=== PATIENT | male | born 1980 | race Caucasian/White ===

== ENCOUNTER 2017-12-27 11:38 | Observation (INO) ==
--- NOTE | 2017-12-27 11:57 | Emergency Department Note ---
Disposition Clinical Impression: ACS (acute coronary syndrome) Disposition: Admitted As Inpatient Condition: Fair Referrals: NONE,PCP [Primary Care Provider] - Forms: ED Satisfaction Letter Time of Disposition: 14:04 Chest Pain HPI - General Chief Complaint: ED Chest Pain Stated Complaint: chest pain Time Seen by Provider: 12/27/17 11:42 Source: patient, family, EMS Limitations: no limitations Vital Signs Reviewed: Yes Nursing Notes Reviewed: Yes - History of Present Illness HPI Narrative: Patient presents per EMS and I did see the patient upon arrival and he presents with sharp chest pain which began gradually at home this morning at 9:00 and is constant and is worse with exertion and he does have associated dyspnea but no diaphoresis. . Does radiate to the left arm but not to the back. Did have some improvement with nitroglycerin in route and also did receive aspirin. No pain or swelling of the lower extremities. No respiratory symptoms. Social history: Had smoked in the past but does not currently smoke. No alcohol or drugs. Family history: Negative for heart disease in parents or siblings Severity scale (1-10): 5 - Related Data Home Medications Medication Instructions Recorded Confirmed Lisinopril [Zestril] 20 mg PO DAILY 07/21/15 07/21/15 Previous Rx's Medication Instructions Recorded Hydrocodone/Acetaminophen [[place] 1 tab PO QID PRN #20 tab 07/21/15 5-325 Tablet] OxyCODONE/APAP 5/325 [Percocet 1 each PO Q6HR PRN #4 tablet 08/05/16 5/325] HYDROcodone/Acet 5/325 mg [[place] 1 tab PO Q6H PRN #8 tab 04/22/17 5-325 mg] Allergies Allergy/AdvReac Type Severity Reaction Status Date / Time orange juice Allergy Redness of Verified 07/21/15 11:35 Skin Review of Systems: Constitutional: No fever Vision: No blurred vision ENT: No rhinorrhea Respiratory: No cough Allergic: No allergies : No blood in urine GI: No blood in stool Hematologic: No bruising Dermatologic: No skin rash Musculoskeletal: No pain in the extremities Neuro: No numbness of the extremities Chest Pain PMH - Past Medical History Medical history: Reports: no medical history Surgical history: Reports: non-contributory Psychiatric history: Reports: no psych history - Social History Smoking Status: Never smoker Alcohol use: Reports: occasionally Drug use: Reports: none Physical Exam CONSTITUTIONAL: Well-appearing; well-nourished; A&O X 3, in no apparent distress HEAD: Normocephalic; atraumatic EYES: PERRL, no scleral icterus NOSE: The nose is normal in appearance without rhinorrhea NECK: No JVD or distended neck veins RESP: Normal chest excursion with respiration; breath sounds clear and equal bilaterally; no wheezes, rhonchi, or rales CARD: Regular rhythm, without murmurs, rub or gallop ABD: Non-distended; non-tender, soft, without rigidity, rebound or guarding,no pulsatile mass CHEST: No pain with palpation SKIN: Normal for age and race; warm and dry without diaphoresis ; no apparent lesions EXTREMITIES: Pulses are 2 plus and equal times 4 extremities, no peripheral edema or calf muscle pain - General Limitations: no limitations General appearance: alert, in no apparent distress Course Vital Signs Temperature 98.8 F 12/27/17 11:43 Pulse Rate 78 12/27/17 11:43 Respiratory Rate 14 12/27/17 11:43 Blood Pressure 140/87 12/27/17 11:43 O2 Sat by Pulse Oximetry 99 12/27/17 11:43 Temperature 98.8 F 12/27/17 11:43 Pulse Rate 78 12/27/17 11:43 Respiratory Rate 14 12/27/17 11:43 Blood Pressure 140/87 12/27/17 11:43 O2 Sat by Pulse Oximetry 99 12/27/17 11:43 Oxygen Delivery Oxygen Delivery Nasal Cannula Chest Pain - MDM Narrative Medical decision making narrative: I did review the patient's EKG and compared to previous EKG and the current EKG shows normal sinus rhythm with a rate of 81 without acute ischemic change and the patient does have labs ordered including troponin, chest x-ray. Already did receive aspirin. Results pending. Otherwise normal in appearance. Is here with his . 1157 Did review the patient's test results. The patient does have multiple concerning factors, was a smoker and stopped 12 years ago, will be admitted. I did speak with the hospitalist who accepted the patient for admission. 1404 I did review the patient's second EKG showing normal sinus rhythm with a rate of 76 without acute ischemic change 1408 - Medical Records Medical records reviewed: Yes I reviewed the patient's medical records. - Lab Data Lab results reviewed: Yes I reviewed the patient's lab results. Result diagrams: 12/27/17 12:12 12/27/17 12:12 Lab Results 12/27/17 12/27/17 12/27/17 Range/Units 12:12 12:12 12:12 WBC 9.2 (4.3-11.1) K/mcL RBC 4.73 (4.19-5.50) M/mcL Hgb 15.0 (12.9-16.9) g/dL Hct 42.0 (37.5-50.1) % MCV 88.8 (83.0-100.0) fL MCH 31.7 (28.0-33.3) pg MCHC 35.7 H (31.6-35.5) g/dL RDW 12.2 (11.5-14.5) % Plt Count 291 (140-400) K/mcL MPV 9.3 L (9.4-12.4) fL Immature Gran % 0.7 (0-4) % Seg Neutrophils % 62.2 % Lymphocytes % 27.7 % Monocytes % 6.9 % Eosinophils % 2.0 % Basophils % 0.5 % Neutrophils # 5.7 (1.6-8.9) K/mcL Lymphocytes # 2.6 (0.6-4.6) K/mcL Monocytes # 0.6 (0.0-1.3) K/mcL Eosinophils # 0.2 (0.0-0.6) K/mcL Basophils # 0.1 (0.0-0.2) K/mcL Immature Plt Fraction 1.5 (1.1-6.1) % Sodium 136 (136-145) mEq/L Potassium 4.1 (3.5-5.1) mEq/L Chloride 109 H (98-107) mEq/L Carbon Dioxide 21 L (23-29) mEq/L BUN 14 (6-20) mg/dL Creatinine 0.87 (0.70-1.30) mg/dL Est GFR ( Amer) > 60 (> 60) Est GFR (Non-Af Amer) > 60 (> 60) BUN/Creatinine Ratio 16 (6-26) Glucose 101 (70-105) mg/dL Calculated Osmolality 283 (280-300) Calcium 8.9 (8.6-10.3) mg/dL Troponin I < 0.03 (< 0.04) ng/mL - Radiology Data Radiology results reviewed: Yes I reviewed the patient's radiology results.
[2017-12-27 12:19] LABS: Basophils # 0.1 K/mcL (0.0-0.2); Basophils % 0.5 %; Eosinophils # 0.2 K/mcL (0.0-0.6); Immature Granulocytes % 0.7 % (0-4); Immature Platelets 1.5 % (1.1-6.1); Lymphocytes # 2.6 K/mcL (0.6-4.6); Lymphocytes % 27.7 %; Mean Corpuscular HGB Conc 35.7 g/dL (31.6-35.5); Mean Corpuscular Hemoglobin 31.7 pg (28.0-33.3); Mean Corpuscular Volume 88.8 fL (83.0-100.0); Mean Platelet Volume 9.3 fL (9.4-12.4); Monocytes # 0.6 K/mcL (0.0-1.3); Monocytes % 6.9 %; Neutrophils # 5.7 K/mcL (1.6-8.9); Platelet Count 291 K/mcL (140-400); Red Blood Count 4.73 M/mcL (4.19-5.50); Red Cell Distribution Width 12.2 % (11.5-14.5); Segmented Neutrophils % 62.2 %
[2017-12-27 12:39] LABS: BUN/Creatinine Ratio 16 (6-26); Blood Urea Nitrogen 14 mg/dL (6-20); Calcium 8.9 mg/dL (8.6-10.3); Carbon Dioxide 21 mEq/L (23-29); Chloride 109 mEq/L (98-107); Glucose 101 mg/dL (70-105); Osmolality,Calculated 283 (280-300); Potassium 4.1 mEq/L (3.5-5.1); Sodium 136 mEq/L (136-145); eGFR For Non-African Americans > 60 (> 60)
[2017-12-27] MEDS ORDERED: Naloxone 0.4 MG/ML INJ IVP PRN (15:08)
--- NOTE | 2017-12-27 15:13 | Internal Med History&Physical ---
<Lizzy Alcantar - Last Filed: 12/27/17 15:10> Date of Encounter: 12/27/17 Time of Encounter: 15:10 Assessment and Plan (1) Chest pain Current visit: Yes Status: Acute Presented with acute onset of sharp chest pain that radiated to her left arm with associated shortness of breath that made him drop to his knees. No known CAD. Risk factors include morbid obesity, hypertension. Initial troponin negative. EKG without acute ST changes. Low suspicion for pulmonary embolism however remains in differential with chest pain, shortness of breath and collapse. Check d-dimer, if elevated will need chest CTA. Continue to cycle troponin. Echo, stress test pending. Start ASA. Lipid panel, Hgb A1c in the am. Consult cardiology if needed. Qualifiers: Chest pain type: precordial pain Qualified Code(s): R07.2 - Precordial pain (2) High blood pressure Current visit: Yes Status: Acute BP mildly elevated with SBP and 140s. Not currently on antihypertensive medication. Possibly secondary to chest pain/stress of hospitalization. Continue to monitor BP. Initiate antihypertensive medication if needed Qualifiers: Hypertension type: essential hypertension Qualified Code(s): I10 - Essential (primary) hypertension (3) DVT prophylaxis Current visit: Yes Status: Acute heparin Internal Medicine - H&P: HPI Chief complaint: chest pain Admitted From: Home Plans for Post Hospital Care: Home History of present illness: Mr. Jha is a 37 year old male with no significant past medical history who presented to [facility] on 12/27/2017 with complaints of chest pain or shortness of breath. He was placed in observation status for ACS rule out. Information obtained from chart review and patient report. Patient says he was in usual state of health this morning when he was getting ready for work. Said he had acute onset of sharp chest pain, localized to the middle chest. Radiated to left arm. Reports left arm numbness. Also reports some shortness of breath. Says chest pain was so bad it dropped him to his knees. No known CAD. Still with some chest discomfort on exam. Not reproducible. Past Med Surg Social Fam HX - Past Medical History Medical history: no medical history Psychiatric history: no psych history - Past Surgical History Surgical History: non-contributory - Social History Smoking Status: Never smoker Smokeless Tobacco Status: No Alcohol use: occasionally Drug use: none - Additional Family History Additional family history: Reviewed and patient reports cardiac disease on both sides of family. Not in immediate family Internal Medicine - H&P: Meds No Known Home Drugs 12/27/17 [History] 3 Allergy/AdvReac Type Severity Reaction Status Date / Time orange juice Allergy Redness of Verified 12/27/17 14:27 Skin All Systems PM: A 10-system review of systems was performed and is negative for pertinent findings except as documented above in the HPI. - Constitutional Constitutional: no chills, no fever(s), no night sweats - EENT Eyes: no change in vision, no discharge, no pain, no photophobia Ears: no ear discharge, no ear pain, no tinnitus Nose, mouth and throat: no dysphagia, no nasal discharge, no neck pain, no sore throat - Cardiovascular Cardiovascular ROS IM: chest pain, no diaphoresis, no dyspnea, no lightheadedness, no palpitations, no syncope - Respiratory Respiratory: dyspnea on exertion, no cough, no dyspnea, no wheezing, no excessive phlegm production - Gastrointestinal Gastrointestinal: no abdominal pain, no diarrhea, no hematemesis, no hematochezia, no melena, no nausea, no vomiting - Musculoskeletal Musculoskeletal ROS IM: no numbness, no tingling - Integumentary Integumentary IM: no rash, no unusual bruising - Neurological Neurological ROS: no confusion, no convulsions, no focal weakness, no numbness, no tingling, no tremor(s) - Hematologic/Lymphatic Hematologic/Lymphatic: no easy bruising - Constitutional Vitals: Temp Pulse Resp BP Pulse Ox 98.0 F 72 16 136/92 99 12/27/17 15:08 12/27/17 15:08 12/27/17 15:08 12/27/17 15:08 12/27/17 15:08 General appearance: Present: mild distress, A&O X 3, morbidly obese - Head Head exam: Present: atraumatic, normocephalic - Eye Eye exam: Present: PERRL, conjuntiva pink, sclera anicteric Pupils: Present: PERRL - Neck Neck exam general surgery: Present: supple, trachea midline. Absent: lymphadenopathy - Respiratory Respiratory exam: Present: CTAB. Absent: accessory muscle use, rales, rhonchi, wheezes - Cardiovascular Cardiovascular exam: Present: RRR, +S1, +S2. Absent: diastolic murmur, gallop, rubs, systolic murmur - GI/Abdominal GI/Abdominal exam: Present: normal bowel sounds, soft, no peritoneal signs. Absent: distended, tenderness - Extremities Exam Extremities exam: Present: warm, radial pulses palpable and symmetrical. Absent : calf tenderness, cyanotic, pedal edema - Neurological Exam Neurological exam: Present: CN II-XII intact, oriented X3, no focal deficits. Absent: pronater drift, facial droop, speech deficit - Skin Skin exam: Present: dry, intact Internal Med - H&P Results - Labs CBC & Chem 7: 12/27/17 12:12 12/27/17 12:12 <Ariana Newman - Last Filed: 12/27/17 17:25> Date of Encounter: 12/27/17 Internal Medicine - H&P: HPI History of present illness: Mr. Jha is a 37 year old male Past Med Surg Social Fam HX - Family History Mother Adopted: [place]: Mariama Alvarez Age: 56 Family Member Ethnicity: Non- Living Status: Still Living Hx Family Cardiac Disorders: Yes ([place]) All Systems PM: A 10-system review of systems was performed and is negative for pertinent findings except as documented above in the HPI. - Constitutional Vitals: Temp Pulse Resp BP Pulse Ox 98.0 F 72 16 136/92 99 12/27/17 15:08 12/27/17 15:08 12/27/17 15:08 12/27/17 15:08 12/27/17 15:08 Internal Med - H&P Results - Labs CBC & Chem 7: 12/27/17 12:12 12/27/17 12:12 - Attending Attestation I have personally performed a face to face evaluation on this patient. I have reviewed and agree with the care plan provided by RICHA Bacon. History and Exam by me shows: Mr. Jha is a 37 year old male with no significant past medical history who presented to [facility] on 12/27/2017 with complaints of chest pain located left chest wall region radiating to his left arm. Gen: A, A, O x 3 Chest: Diminished BS b/l, no crackles Heart: S1S2+ RRR No murmurs a/p 1. Acute CP Need to r/o ACS EKG - normal sinus rhythm with a rate of 81 and no acute ischemic changes so far negative trop trend on trop stress test in AM
[2017-12-27] MEDS ORDERED: Nitroglycerin 0.4 MG TAB.SUBL SL PRN (15:37)
[2017-12-27] MEDS ORDERED: Ketorolac 30 MG/ML VIAL IVP ONE (15:37)
[2017-12-27] MEDS: Aspirin Enteric Coated 81 MG Tablet PO SCH (15:53)
[2017-12-27] MEDS: *HR* Heparin 5,000 UNIT/ML VIAL SQ SCH (21:11)
[2017-12-27] MEDS: *HR* Morphine 2 MG/ML SYRINGE IVP PRN (22:03)
[2017-12-28 00:19] LABS: Hematocrit 40.7 % (37.5-50.1); Hemoglobin 14.4 g/dL (12.9-16.9); Mean Corpuscular HGB Conc 35.4 g/dL (31.6-35.5); Mean Corpuscular Volume 90.4 fL (83.0-100.0); Mean Platelet Volume 9.4 fL (9.4-12.4); Platelet Count 265 K/mcL (140-400); Red Cell Distribution Width 12.3 % (11.5-14.5)
[2017-12-28 00:24] LABS: Hemoglobin A1C 4.7 %
[2017-12-28 00:51] LABS: BUN/Creatinine Ratio 18 (6-26); Blood Urea Nitrogen 20 mg/dL (6-20); Calcium 8.7 mg/dL (8.6-10.3); Carbon Dioxide 23 mEq/L (23-29); Chloride 108 mEq/L (98-107); Chol/HDL Ratio 4.1 (0-4.9); Glucose 109 mg/dL (70-105); Osmolality,Calculated 287 (280-300); Sodium 137 mEq/L (136-145); eGFR For Non-African Americans > 60 (> 60)
[2017-12-28] MEDS: *HR* Heparin 5,000 UNIT/ML VIAL SQ SCH ×3 (05:38→21:03)
[2017-12-28] MEDS: *HR* Morphine 2 MG/ML SYRINGE IVP PRN ×3 (06:18→19:28)
[2017-12-28] MEDS ORDERED: Regadenoson 0.4 MG/5 ML SYRINGE IVP ONE (06:54)
[2017-12-28] MEDS: Aspirin Enteric Coated 81 MG Tablet PO SCH (10:30)
--- NOTE | 2017-12-28 16:51 | Internal Med Progress Note ---
Date of Encounter: 12/28/17 Time of Encounter: 16:48 - Assessment and plan (1) Chest pain Current Visit: Yes Status: Acute Assessment and plan: presented with acute onset of sharp chest pain that radiated to her left arm with associated shortness of breath that made him drop to his knees. No known CAD. Risk factors include morbid obesity, hypertension. Serial troponin negative. EKG without acute ST changes. TTE with EF 50%, mild diastolic dysfunction. Hgb A1c 4.7%, LDL 101. Continue ASA, start statin. Stress test pending. With persistent CP will check chest CTA. Qualifiers: Chest pain type: precordial pain Qualified Code(s): R07.2 - Precordial pain (2) High blood pressure Current Visit: Yes Status: Acute Assessment and plan: BP mildly elevated with SBP and 140s. Not currently on antihypertensive medication. Possibly secondary to chest pain/stress of hospitalization. Continue to monitor BP. Initiate antihypertensive medication if needed. BP controlled on 12/28/17 review Qualifiers: Hypertension type: essential hypertension Qualified Code(s): I10 - Essential (primary) hypertension (3) DVT prophylaxis Current Visit: Yes Status: Acute Assessment and plan: heparin - Subjective Interval history: Seen and examined at bedside. Says he is still having intermittent chest discomfort that comes and goes. No aggravating or alleviating factors. No shortness of breath. - Constitutional Vitals: Temp Pulse Resp BP Pulse Ox 97.8 F 61 18 119/75 95 12/28/17 15:25 12/28/17 15:25 12/28/17 15:25 12/28/17 15:25 12/28/17 15:25 General appearance: Present: A&O X 3, morbidly obese - Head Head exam: Present: atraumatic, normocephalic - Eye Eye exam: Present: PERRL, conjuntiva pink, sclera anicteric Pupils: Present: PERRL - Neck Neck exam general surgery: Present: supple, trachea midline. Absent: lymphadenopathy - Respiratory Respiratory exam: Present: CTAB. Absent: accessory muscle use, rales, rhonchi, wheezes - Cardiovascular Cardiovascular exam: Present: RRR, +S1, +S2. Absent: diastolic murmur, gallop, rubs, systolic murmur - GI/Abdominal GI/Abdominal exam: Present: normal bowel sounds, soft, no peritoneal signs. Absent: distended, tenderness - Extremities Exam Extremities exam: Present: warm, radial pulses palpable and symmetrical. Absent : calf tenderness, cyanotic, pedal edema - Neurological Exam Neurological exam: Present: CN II-XII intact, oriented X3, no focal deficits. Absent: pronater drift, facial droop, speech deficit - Skin Skin exam: Present: dry, intact Internal Medicine: Result - Labs CBC & Chem 7: 12/28/17 00:09 12/28/17 00:09 Labs: Short CBC 12/28/17 Range/Units 00:09 WBC 12.1 H (4.3-11.1) K/mcL Hgb 14.4 (12.9-16.9) g/dL Hct 40.7 (37.5-50.1) % Plt Count 265 (140-400) K/mcL BMP 12/28/17 00:09 Sodium 137 Potassium 4.0 Chloride 108 H Carbon Dioxide 23 BUN 20 Creatinine 1.13 Glucose 109 H Calcium 8.7 Cardiac Enzymes 12/27/17 12/28/17 Range/Units 17:49 00:09 Troponin I < 0.03 < 0.03 (< 0.04) ng/mL - ABG Interpretation ABG results: PT/INR, D-dimer D-Dimer 225 ng/mLFEU (0-500) 12/27/17 15:44 - Impressions Impressions Echocardiogram 12/28/17 15:11 Impressions: LVEF 50-55%. Mild left ventricular diastolic dysfunction. Normal right ventricular structure and function. No significant valvular dysfunction. No pulmonary hypertension. Left Ventricular Wall Motion: Rest Echo Findings All wall segments showed normal motion. Findings: Study Quality * Technically adequate exam. ECG Findings * Normal sinus rhythm. Left Ventricle * LVEF 50-55%. * Mild left ventricular diastolic dysfunction. * Normal LV chamber size and wall thickness. Right Ventricle * Normal right ventricular structure and function. Left Atrium * Normal left atrial size. Right Atrium * Normal right atrial size. Aortic Valve * No aortic regurgitation. * Aortic valve not well visualized. * No aortic stenosis. Mitral Valve * Normal mitral valve structure. * No mitral stenosis. * Trace mitral regurgitation. Tricuspid Valve * Tricuspid valve not well visualized. * Trace tricuspid regurgitation. * Estimated RA pressure is 3 mmHg. * Estimated RVSP is 27 mmHg. * No pulmonary hypertension. Pulmonic Valve * Pulmonic valve is not well visualized. * No pulmonic stenosis. * No pulmonic regurgitation. Pulmonary Artery * Pulmonary artery not well visualized. Aorta * Normally sized aortic root. Pericardium * There is no pericardial effusion present. Interatrial Septum * No evidence of PFO by color Doppler. IVC * Normal IVC dimensions and inspiratory collapse. Consult Discharge Plan - Plan Referrals: NONE,PCP [Primary Care Provider] -
[2017-12-29] MEDS: *HR* Morphine 2 MG/ML SYRINGE IVP PRN ×4 (04:29→22:36)
[2017-12-29 04:48] LABS: Hematocrit 40.7 % (37.5-50.1); Hemoglobin 14.2 g/dL (12.9-16.9); Mean Corpuscular HGB Conc 34.9 g/dL (31.6-35.5); Mean Corpuscular Hemoglobin 31.6 pg (28.0-33.3); Mean Corpuscular Volume 90.4 fL (83.0-100.0); Mean Platelet Volume 9.6 fL (9.4-12.4); Platelet Count 253 K/mcL (140-400); Red Cell Distribution Width 12.3 % (11.5-14.5)
[2017-12-29 05:13] LABS: BUN/Creatinine Ratio 20 (6-26); Blood Urea Nitrogen 19 mg/dL (6-20); Carbon Dioxide 25 mEq/L (23-29); Chloride 107 mEq/L (98-107); Glucose 105 mg/dL (70-105); Osmolality,Calculated 287 (280-300); Sodium 137 mEq/L (136-145); eGFR For Non-African Americans > 60 (> 60)
[2017-12-29] MEDS: *HR* Heparin 5,000 UNIT/ML VIAL SQ SCH ×3 (06:21→20:09)
[2017-12-29] MEDS: Aspirin Enteric Coated 81 MG Tablet PO SCH (08:16)
--- NOTE | 2017-12-29 16:56 | Internal Med Progress Note ---
Date of Encounter: 12/29/17 Time of Encounter: 16:54 - Assessment and plan (1) Chest pain Current Visit: Yes Status: Acute Assessment and plan: presented with acute onset of sharp chest pain that radiated to her left arm with associated shortness of breath that made him drop to his knees. No known CAD. Risk factors include morbid obesity, hypertension. Serial troponin negative. EKG without acute ST changes. TTE with EF 50%, mild diastolic dysfunction. Chest CTA negative for pulmonary embolism. Hgb A1c 4.7%, LDL 101. Continue ASA, start statin. Stress test pending. Qualifiers: Chest pain type: precordial pain Qualified Code(s): R07.2 - Precordial pain (2) High blood pressure Current Visit: Yes Status: Acute Assessment and plan: BP mildly elevated with SBP and 140s. Not currently on antihypertensive medication. Possibly secondary to chest pain/stress of hospitalization. Continue to monitor BP. Initiate antihypertensive medication if needed. BP controlled on 12/29/17 review Qualifiers: Hypertension type: essential hypertension Qualified Code(s): I10 - Essential (primary) hypertension (3) DVT prophylaxis Current Visit: Yes Status: Acute Assessment and plan: heparin - Subjective Interval history: Seen and examined at bedside. Says he feels much better on today's exam. Still having mild chest pressure but overall improved. He thinks he may have injured left shoulder while moving boxes at work and suspects this could be extremity chest pain. He is aware of need to be nothing by mouth at midnight for second part stress test. He otherwise has no complaints and feels well. - Constitutional Vitals: Temp Pulse Resp BP Pulse Ox 97.7 F 75 16 120/84 97 12/29/17 15:54 12/29/17 15:54 12/29/17 15:54 12/29/17 15:54 12/29/17 15:54 General appearance: Present: A&O X 3, morbidly obese Internal Medicine: Result - Labs CBC & Chem 7: 12/29/17 04:11 12/29/17 04:11 Labs: Short CBC 12/29/17 Range/Units 04:11 WBC 9.5 (4.3-11.1) K/mcL Hgb 14.2 (12.9-16.9) g/dL Hct 40.7 (37.5-50.1) % Plt Count 253 (140-400) K/mcL BMP 12/29/17 04:11 Sodium 137 Potassium 4.0 Chloride 107 Carbon Dioxide 25 BUN 19 Creatinine 0.96 Glucose 105 Calcium 9.0 - ABG Interpretation ABG results: PT/INR, D-dimer D-Dimer 225 ng/mLFEU (0-500) 12/27/17 15:44 - Impressions Impressions Chest CTA 12/28/17 16:46 IMPRESSION: No evidence of pulmonary embolism or acute pulmonary abnormality. D/ / Demetri Romero / Demetri Romero Interpreting Provider: Demetri Romero Consult Discharge Plan - Plan Referrals: NONE,PCP [Primary Care Provider] -
[2017-12-30] MEDS: *HR* Heparin 5,000 UNIT/ML VIAL SQ SCH ×3 (05:41→22:19)
[2017-12-30] MEDS: *HR* Morphine 2 MG/ML SYRINGE IVP PRN ×3 (06:07→18:47)
--- NOTE | 2017-12-30 06:22 | Electrocardiograph Report ---
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
--- NOTE | 2017-12-30 06:24 | Electrocardiograph Report ---
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
[2017-12-30] MEDS: Aspirin Enteric Coated 81 MG Tablet PO SCH (07:50)
--- NOTE | 2017-12-30 11:58 | Cardiology Consult Note ---
<Marcy Underwood - Last Filed: 12/30/17 12:02> Date of Encounter: 12/30/17 Time of Encounter: 11:57 Assessment and Plan (1) Chest pain Current Visit: Yes Status: Acute Per cardiology: -Admitted with chest pain. -Troponins negative x3. -ECG with no acute ischemic changes. -TTE with LVEF 50-55%, no segmental wall motion abnormalities. -Stress test abnormal. -ON asa, has PRN nitro. -Discussed LHC versus medical management with pateint and mother. At this time, patient prefers to proceed with LHC. RIsks versus benefits of LHC explained to pateint and family. Patient states understanding and agreeable to proceed. -Added statin (LDL 101) and beta luci. -Further recommendations pending LHC. Qualifiers: Chest pain type: other chest pain Qualified Code(s): R07.89 - Other chest pain; R07.8 - Other chest pain (2) Abnormal stress test Current Visit: Yes Status: Acute Per cardiology: -Stress with small area of apex ischemia. Suspected to be artifact, however ischemia cannot be ruled out. -PLan for LHC as above. Discussion w patient/family: The assessment and plan as outlined above was discussed with the patient and/or family members who expressed understanding and agreement. All questions were answered. Thank you for involving us in the care of your patient. Please call with any questions. -Discussed and reviewed with and . History of Present Illness Consult date: 12/30/17 Requesting physician: Malou Conn Consult reason: abnormal stress Chief complaint: chest pain History of present illness: Mr. Jha is a 37 year old male with a relevant past medical history of HTN, obesity, previous smoking (smoked 3 ppd for 15 years). Patient presented to [facility] with complaints of midsternal chest pain that radiated to left arm. Pateint states pain started while up walking and on the telephone. Patient states pain was worse with exertion and somewhat lessened with rest. Patient reports pain has waxed and waned since Saturday, but has never been resolved. Patient also admits to increased fatigue and increased shortness of breath. Past Med Surg Social Fam HX - Past Medical History Attestation: Yes The following information was validated with the patient. Source: patient, old records reviewed Medical history: hypertension Psychiatric history: no psych history - Past Surgical History Surgical History: non-contributory - Social History Smoking Status: Never smoker Smokeless Tobacco Status: No Alcohol use: occasionally Drug use: none - Family History Mother Adopted: [place]: Mariama Alvarez Age: 56 Family Member Ethnicity: Non- Living Status: Still Living Hx Family Cardiac Disorders: Yes (MS) Medications and Allergies No Known Home Drugs 12/27/17 [History] 3 Allergy/AdvReac Type Severity Reaction Status Date / Time orange juice Allergy Redness of Verified 12/27/17 14:27 Skin All Systems Review: The remainder of the systems were reviewed and are negative - Constitutional Constitutional: fatigue - Cardiovascular Cardiovascular: as per HPI, chest pain at rest, chest pain with exertion, dyspnea on exertion Physical Examination Vital Signs, Last 4 Hours Temp Pulse Resp BP Pulse Ox 12/30/17 11:42 97.5 F L 71 15 106/74 97 General: Conversant, No Apparent Distress HEENT: Atraumatic, Normocephaly, Mucus Membranes Moist Neck: No JVD, Normal carotid pulses Cardiac: Reg Rate and Rhythm, Normal S1 and S2, No Murmur Lungs: Normal Breath Sounds, No Wheeze, Rales, Rhonchi Neuro: Alert and responsive, No focal deficits noted Abdomen: Soft, Non-Tender Skin: No rashes noted on visualized skin Musculoskeletal: No Chest Wall Tenderness Extremities: No Clubbing, No Cyanosis, No Edema, Normal Pulses Results 12/29/17 04:11 12/29/17 04:11 Impressions Shoulder X-Ray 12/29/17 16:55 IMPRESSION: No acute abnormality. D/ / Kushal Avalos MD / Kushal Avalos MD Interpreting Provider: Kushal Avalos MD Active Medications Aspirin (Aspirin Ec) 81 mg PO DAILY PETE Stop: 06/28/18 15:16 Last Admin: 12/30/17 07:50 Dose: 81 mg Atorvastatin Calcium (Lipitor) 40 mg PO HS PETE Stop: 07/01/18 21:01 Heparin Sodium (Porcine) (Heparin) 5,000 unit SQ Q8HCO PETE Stop: 06/28/18 22:01 Last Admin: 12/30/17 05:41 Dose: 5,000 unit Metoprolol Succinate (Toprol Xl) 25 mg PO DAILY PETE Stop: 07/01/18 12:01 Morphine Sulfate (Morphine Sulfate) 2 mg IVP Q6HR PRN; Protocol PRN Reason: Chest Pain Stop: 06/28/18 21:33 Last Admin: 12/30/17 06:07 Dose: 2 mg Naloxone HCl (Narcan) 0.4 mg IVP Q2MIN PRN PRN Reason: SEE COMMENTS Stop: 06/28/18 15:09 Nitroglycerin (Nitroglycerin) 0.4 mg SL Q5MIN PRN PRN Reason: Chest Pain Stop: 06/28/18 15:38 Last Admin: 12/27/17 15:54 Dose: 0.4 mg Laboratory Tests 12/27/17 12/27/17 12/28/17 12:12 17:49 00:09 Hgb Creatinine Troponin I < 0.03 < 0.03 < 0.03 LDL Cholesterol, Calc 12/28/17 12/29/17 12/29/17 00:09 04:11 04:11 Hgb 14.2 Creatinine 0.96 Troponin I LDL Cholesterol, Calc 101 H - Imaging and Cardiology Chest Xray: report reviewed Stress Test: report reviewed Echo: report reviewed Cardiac cath: pending - EKG Interpretation EKG results cardiology: personally reviewed (ECG with SR.), other (Telemetry reviewed with average HR previous 12 hours noted to be 75, SR. PACs noted.) Consult Discharge Plan - Plan Referrals: NONE,PCP [Primary Care Provider] - <Evonne Weiner - Last Filed: 12/30/17 12:36> Date of Encounter: 12/30/17 - Attending Attestation 37 YOM with abnormal stress test and preserved EF evaluated for typical angina. Apical reversible ischemia Abnormal stress test Typical angina EKG unremarkable LHC d/w pt including r/b/a and patient agrees to proceed Assessment and Plan Discussion w patient/family: The assessment and plan as outlined above was discussed with the patient and/or family members who expressed understanding and agreement. All questions were answered. Thank you for involving us in the care of your patient. Please call with any questions. History of Present Illness History of present illness: Mr. Jha is a 37 year old male All Systems Review: The remainder of the systems were reviewed and are negative Physical Examination Vital Signs, Last 4 Hours Temp Pulse Resp BP Pulse Ox 12/30/17 11:42 97.5 F L 71 15 106/74 97 Results 12/29/17 04:11 12/29/17 04:11
[2017-12-30] MEDS ORDERED: Metoprolol XL (24 HR) Succ 25 MG TAB.ER.24H PO SCH (12:00)
[2017-12-30] MEDS ORDERED: Nitroglycerin 1,000 MCG/10 ML VIAL IV ONE (13:56)
[2017-12-30] MEDS ORDERED: ISOVUE-370 200 ML INFUS..BTL IV ONE (13:56)
[2017-12-30] MEDS ORDERED: 0.9 % Sodium Chloride 1,000 ML ONE ×2 (13:56→14:39)
[2017-12-30] MEDS ORDERED: Heparin 1,000 UNITS/500 mL 500 ML ONE (13:56)
[2017-12-30] MEDS ORDERED: *HR* Heparin 10,000 UNIT/10 ML VIAL ONE (13:56)
[2017-12-30] MEDS ORDERED: *HR* Midazolam HCl 2 MG/2 ML VIAL ONE ×2 (14:39→14:57)
--- NOTE | 2017-12-30 15:18 | Pre-Sedation Evaluation ---
Pre-sedation evaluation - Pre-sedation checklist Date of procedure: 12/30/17 Procedure: left heart cath Recent Vitals: Last Vital Signs Temp 97.5 F L 12/30/17 11:42 Pulse 71 12/30/17 11:42 Resp 15 12/30/17 11:42 BP 106/74 12/30/17 11:42 Pulse Ox 97 12/30/17 11:42 H&P (including ROS) documented in medical record: Yes Previous reaction to sedatives/anesthetics: No Dietary Status: No solid food in preceding 4 hrs and no liquid in preceding 2 hrs Airway Assessment: Patient can open mouth completely, TMJ function normal Dentition: No loose teeth or bridges Possible difficult airway: No ASA Classification *see protocol: CLASS III-Severe systemic disease Plan of Care: Pt appropriate candidate for procedure/moderate/conscious sedation , Risks/benefits of procedure/sedation discussed w/ patient/family, If not NPO; Risk of intake outweiged by necessity to perform procedure
--- NOTE | 2017-12-30 15:25 | Event Note ---
Date of Encounter: 12/30/17 Time of Encounter: 15:20 - Cardiology Event Note Reviewed C findings with Dr. Iraheta. LHC: non-obstructive CAD. Risk factor modification recommended. Discussed with Dr. Weiner, Cardiology will sign-off. Recommend follow-up with PCP in the outpatient setting.
--- NOTE | 2017-12-30 15:44 | Invasive Diagnostic Lab Proc ---
Name: Christ Jha Date of Study: 12/30/2017 Date: 1980 Ht: 74.0in Medical Record#: [id number] Age: 37 Wt: 361.56lb Gender: Male BSA: 2.8 Order #: [id number] BMI: 46.4 Physicians Procedure Physician: Jadon Iraheta DO Referring MD: Referring MD: Staff Name Position Time In Soledad Negrete RT (R) Scrub 02:20 PM Deanna Max RN Cashier Ticket Selling 02:20 PM Clarisse Casiano RN Monitor 02:26 PM Indications Indication Abnormal Test - Stress Procedures Performed Procedure L HRT ARTERY/VENTRICLE ANGIO Pre-Procedure Checklist Informed consent is complete signed and on chart. H&P is on chart. ID band is on and ID verified with patient. Patient NPO for procedure The procedure was described for the patient and questions were answered. Blood Pressure: 106/74 ECG is on chart. Rhythm: NSR Plan of Care Patient will tolerate the procedure without complications. Adequate level of comfort will be maintained. Hemodynamics will remain stable Patient will recover from procedure without complications. Respiratory function will be maintained. Cardiac rhythm will remain stable. Patient temperature will be maintained. Patient and/or family have verbalized understanding of the procedure. Patient Education Chief Complaint/Reason for Test: Cardiac Cath Developmental Category: Adult (18-64 years) Developmentally Appropriate for Age: Yes Learning Barriers: None Education Needs: Procedure Education Method: Verbal Information Taught: Cardiac Cath Educational Evaluation: Able to repeat information Intravenous Access Time IV Size Location DC'd Fluid/Drip Rate Units RN 01:53 PM 18g 1 11/07" Patent On Arrival Lt Antecubital Deanna Max RN Allergies orange juice NO KNOWN ALLERGIES NKA Vital Signs Time BP (mmHg) HR (bpm) O2 Sat. RR (bpm) LOC 01:54 PM 106 / 74 71 97 % 15 5 = Fully awake and oriented or at pre-proc level 02:28 PM / % 4 = Oriented but drowsy 02:28 PM / % 5 = Fully awake and oriented or at pre-proc level 02:45 PM / % 4 = Oriented but drowsy 03:01 PM / % 4 = Oriented but drowsy 03:16 PM / % 4 = Oriented but drowsy 02:39 PM 148 / 65 91 100 % 25 03:21 PM 156 / 103 85 97 % 10 Procedural Medications Time Medication Dose Units Method Given By 02:45 PM Oxygen 2 L/min nasal cannula Deanna Max RN 02:45 PM Versed 2 mg Intravenous Deanna Max RN 02:58 PM Versed 1 mg Intravenous Deanna Max RN 02:59 PM Lidocaine 2% 10 ml Subcutaneous Jadon Iraheta, DO 03:10 PM Versed 1 mg Intravenous Deanna Max RN ASA Classification: CLASS III- Severe systemic disease (i.e. prior AMI, diabetes with vascular complications, morbid obesity) Garland Score Preprocedure Postprocedure Activity 2- Moves 4 extremities sustained head lift Activity 2- Moves 4 extremities sustained head lift Circulation 2- SBP +/= 20 points of pre-anesthetic level Circulation 2- SBP +/= 20 points of pre-anesthetic level Consciousness 2- Awake and alert oriented x 3 Consciousness 2- Awake and alert oriented x 3 O2 Saturation 2- Able to maintain O2 satruation of 92% on room air O2 Saturation 2- Able to maintain O2 satruation of 92% on room air Respiratory 2- Able to deep breathe and cough well Respiratory 2- Able to deep breathe and cough well Total Score 10 Total Score 10 Contrast Agent: Isovue Diagnostic Contrast: 45 ml Total Contrast: 45 ml Fluoro Dose: 297 mGy Procedure Log Time Note Enter By 02:15 PM Physican paged/called 14:15. scoates 02:15 PM Pt arrived to laborer concrete paving 2 at 14:15 scoates 02:20 PM Soledad Negrete RT (R) Position: Scrub Time in: 14:20 scoates 02:26 PM Deanna Max RN Position: Cashier Ticket Selling Time in: 14:20 scoates 02:26 PM Clarisse Casiano RN Position: Monitor Time in: 14:26 scoates 02:26 PM Patient charges- Angio tray pack, Navilyst 3mm J, Pulse Oximetry and ACIST tubing and transducer scoates 02:28 PM Time: 14:27 Patient comfortable and pain free: Yes scoates 02:28 PM Time: 14:28LOC: 4 = Oriented but drowsy scoates 02:39 PM NIBP STAT measurement started. 02:39 PM HR=91 bpm, DESK=701/65 mmhg, TuL2=070.0 %, Resp=25 B/min 02:40 PM Physician arrived 14:40 scoates 02:40 PM Meet and greet completed scoates 02:40 PM Sign in performed according to hospital policy. scoates 02:41 PM Procedure start 14:41 scoates 02:45 PM Time: 14:28LOC: 5 = Fully awake and oriented or at pre-proc level scoates 02:45 PM Time: 14:28 Patient comfortable and pain free: Yes scoates 02:45 PM Time: 14:45 Oxygen on at 2 L/min per nasal cannula by Deanna Max RN scoates 02:45 PM Time: 14:45 Versed 2 mg Intravenous Given by Deanna Max RN scoates 02:46 PM Recorded ECG: HR=83 Condition=Condition 1 02:49 PM Pressure channel 2 zeroed. 02:52 PM Case Delayed no, inpatient scoates 02:52 PM Hair removed from procedure site in procedure lab using clippers. Bilateral groin prepped with Chloraprep by Clarisse Casiano RN, then patient was draped. Skin intact. scoates 02:56 PM Pressure channel 2 zeroed. 02:58 PM Time: 14:58 Versed 1 mg Intravenous Given by Deanna Max RN scoates 02:58 PM ASA Class CLASS III- Severe systemic disease (i.e. prior AMI, diabetes with vascular complications, morbid obesity) scoates 02:59 PM Clinical Presentation: Unstable angina scoates 02:59 PM Time out performed according to hospital policy scoates 02:59 PM Time: 14:59 10 ml Lidocaine 2% to right groin Subcutaneous Given by Jadon Iraheta DO scoates 03:01 PM Time: 14:45 Patient comfortable and pain free: Yes scoates 03:01 PM Time: 14:45LOC: 4 = Oriented but drowsy scoates 03:02 PM Micro-Introducer Kit utilized for sheath placement scoates 03:03 PM Unsuccessful access attempt # 1 into the right Femoral artery. Manual pressure applied to achieve hemostasis.. scoates 03:05 PM Unsuccessful access attempt # 2 into the right Femoral artery. Manual pressure applied to achieve hemostasis.. scoates 03:07 PM Access obtained by percutaneous puncture. 4Fr 10cm Terumo Horner sheath placed in right Femoral vein. [id number] scoates 03:09 PM Access obtained by percutaneous puncture. 6Fr 11cm Terumo Horner sheath placed in right Femoral artery. [id number] scoates 03:09 PM 6Fr FR 4 catheter inserted over the wire DNC scoates 03:09 PM Catheter selectively placed in left ventricle scoates 03:10 PM Bolus angiogram of left Ventricle complete: hand injected for a total of 10 mls scoates 03:10 PM Time: 15:10 Versed 1 mg Intravenous Given by Deanna Max RN scoates 03:10 PM Recorded Pressure: LV, HR=71, Condition=Condition 1 (Left Ventricle) LV 124/6/16 03:10 PM Recorded Pressure: LV, Ao, HR=75, Condition=Condition 1 (Left Ventricle) LV 117/6/10, (Aorta) Ao 122/57/95 03:11 PM RCA angiography performed in multiple views. scoates 03:11 PM Catheter removed scoates 03:11 PM LCA angiography performed in multiple views. scoates 03:13 PM LCA angiography performed in multiple views. scoates 03:13 PM Recorded Pressure: Ao, HR=82, Condition=Condition 1 (Aorta) Ao 118/80/98 03:14 PM Coronary Dominance: Co-dominant scoates 03:15 PM Bolus angiogram of right Femoral complete: hand injected for a total of 5 mls scoates 03:16 PM Time: 15:01LOC: 4 = Oriented but drowsy scoates 03:16 PM Time: 15:01 Patient comfortable and pain free: Yes scoates 03:17 PM Procedure completed at 15:16 scoates 03:17 PM Sign out completed: Radiation Dose 297 mGy Fluoro Time: 1.3 Isovue 370 - 200ml contrast 45 ml given by Jadon Iraheta DO. Complications: NoneCardiac Rehab Consult needed: NoConfirmed administered medications: Yes scoates 03:20 PM NIBP STAT measurement started. 03:20 PM Isovue 370 - 200ml,1 Bottle(s) used. scoates 03:21 PM Arterial sheath pulled using manual compression and V+ Pad for 15 minutes by Soledad Negrete RT (R) scoates 03:21 PM Estimated Blood Loss: minimal scoates 03:21 PM Post ECG NSR scoates 03:21 PM HR=85 bpm, CBXF=391/103 mmhg, SpO2=97.0 %, Resp=10 B/min 03:21 PM Post Blood Pressure 156/103 scoates 03:21 PM 15:21 Post Pulses Bilateral DP 2+ scoates 03:22 PM 15:22 Post Pulses Bilateral PT 1+ scoates 03:22 PM Information taught Cardiac Cath scoates 03:22 PM Education needs Procedure, Plan of Care, and Responsibilities of Patient in Care scoates 03:22 PM Learning barriers :None scoates 03:22 PM Education Methods Verbal scoates 03:22 PM Education evaluation Able to repeat information scoates 03:25 PM Report given to Mary ELDER Pt taken to 3B Room #54. 15:24 scoates 03:25 PM Plavix, Effient or Brilinta given No scoates 03:25 PM Delay to floor No scoates 03:29 PM Patient out of room: 15:29 scoates 03:30 PM Family placed in consult room. scoates 03:30 PM Complications: None scoates 03:30 PM Fluoro Time: 1.3 scoates 03:30 PM Isovue 370 - 200ml contrast 45 ml given by Jadon Iraheta DO. scoates 03:30 PM Radiation Dose 297 mGy scoates 03:31 PM Time: 15:16 Patient comfortable and pain free: Yes scoates 03:31 PM Time: 15:16LOC: 4 = Oriented but drowsy scoates 03:34 PM Opsite applied scoates 03:34 PM Site status No bleeding/hematoma - Rt Groin as reported by Soledad Negrete RT (R) at 15:34 scoates Complications Complication None None Hemodynamics Pressures Site Systolic/A Wave Diastolic/V Wave Mean LV 124 6 16 LV 117 6 10 AO 122 57 95 AO 118 80 98 Post Procedure Information Blood Pressure: 156/103 mmHg Rhythm: NSR Post procedural instructions were given Closure Device Time Device Success/Fail 12/30/2017 3:23:00 PM Manual Compression Successful Site Checks Time Location Status Staff Sheath In? Note 03:34 PM Rt Groin No bleeding/hematoma Soledad Negrete RT (R) Pulses Time Site Pre-Procedure Post-Procedure Note 12/30/2017 1:54:00 PM Bilateral radial 2+ 12/30/2017 1:54:00 PM Bilateral DP 2+ 12/30/2017 1:54:00 PM Bilateral PT 1+ 3:21:00 PM Bilateral DP 2+ 3:22:00 PM Bilateral PT 1+ Updated by Clarisse Ram RN on 12/30/2017 3:35:45 PM electronically signed on 12/30/2017 3:36:30 PM with status of Final
--- NOTE | 2017-12-30 15:49 | Internal Med Progress Note ---
Date of Encounter: 12/30/17 Time of Encounter: 09:00 - Assessment and plan (1) Abnormal stress test Current Visit: Yes Status: Acute Assessment and plan: Patient underwent Pharmalogic nuclear stress : Impression: Pharmacologic stress ECG is negative for ischemia at level of heart rate achieved. Gated EF = 61%. Chest discomfort reported prior to, during, and after the study. Although I suspect this is defect due to artifact, a small area of apex ischemia cannot be excluded. Clinical correlation suggested. Discussed finding with Dr Weiner who will be consulted for possible LHC (2) Chest pain Current Visit: Yes Status: Acute Assessment and plan: No known CAD Risk factors include morbid obesity HTN. CE are negative EKG with no acute EKG changes Chest CTA negative for PE Cont ASA start statin Stress test abnormal: consult cardiology Qualifiers: Chest pain type: other chest pain Qualified Code(s): R07.89 - Other chest pain; R07.8 - Other chest pain (3) High blood pressure Current Visit: Yes Status: Acute Assessment and plan: Improved - was documented that BP was midly elevated SBP 140- appears to be improved- suspect rt anxiety- will cont to monitor Qualifiers: Hypertension type: essential hypertension Qualified Code(s): I10 - Essential (primary) hypertension (4) DVT prophylaxis Current Visit: Yes Status: Acute Assessment and plan: heparin - Time Spent With Patient less than 15 minutes - Subjective Interval history: Patient is new to me I reviewed medical records. Patient underwent cardiac stress test which did reveal a small area of apex ischemia although suspect defect due to artifact. I reviewed finding with Dr Weiner cardiology who will see patient for possible heart cath. I examined the patient at bedside and discussed findings and answered questions He verbalized understanding - Constitutional Vitals: Temp Pulse Resp BP Pulse Ox 97.5 F L 71 15 106/74 97 12/30/17 11:42 12/30/17 11:42 12/30/17 11:42 12/30/17 11:42 12/30/17 11:42 General appearance: Present: A&O X 3, morbidly obese - Head Head exam: Present: atraumatic, normocephalic - Eye Eye exam: Present: PERRL, conjuntiva pink, sclera anicteric Pupils: Present: PERRL - Neck Neck exam general surgery: Present: supple, trachea midline. Absent: lymphadenopathy - Respiratory Respiratory exam: Present: CTAB. Absent: accessory muscle use, rales, rhonchi, wheezes - Cardiovascular Cardiovascular exam: Present: RRR, +S1, +S2. Absent: diastolic murmur, gallop, rubs, systolic murmur - GI/Abdominal GI/Abdominal exam: Present: normal bowel sounds, soft, no peritoneal signs. Absent: distended, tenderness - Extremities Exam Extremities exam: Present: warm, radial pulses palpable and symmetrical. Absent : calf tenderness, cyanotic, pedal edema - Neurological Exam Neurological exam: Present: CN II-XII intact, oriented X3, no focal deficits. Absent: pronater drift, facial droop, speech deficit - Skin Skin exam: Present: dry, intact Internal Medicine: Result - Labs CBC & Chem 7: 12/29/17 04:11 12/29/17 04:11 - ABG Interpretation ABG results: PT/INR, D-dimer D-Dimer 225 ng/mLFEU (0-500) 12/27/17 15:44 - Impressions Impressions Shoulder X-Ray 12/29/17 16:55 IMPRESSION: No acute abnormality. D/ / Kushal Avalos MD / Kushal Avalos MD Interpreting Provider: Kushal Avalos MD Consult Discharge Plan - Plan Referrals: NONE,PCP [Primary Care Provider] -
[2017-12-30] MEDS: 0.9 % Sodium Chloride 1,000 ML IVC SCH ×2 (15:58→22:20)
[2017-12-31] MEDS: *HR* Heparin 5,000 UNIT/ML VIAL SQ SCH (04:04)
[2017-12-31 06:50] VITALS: BP 107/71
--- NOTE | 2017-12-31 07:40 | Discharge Summary ---
Orders not resulted at time of discharge: Pending orders 12/27/17 15:10 NM addy perf SPECT multi [NM] Routine Date of Encounter: 12/31/17 Time of Encounter: 07:38 - Discharge Diagnosis (1) Abnormal stress test Priority: Primary Status: Acute Comments: 1 underwent LHC non-obstructive CAD.Rsk factor modification recommended per cardiology Have patient follow up with PCP (2) Chest pain Priority: Primary Status: Acute Comments: Risk factors include morbid obesity HTN. CE are negative EKG with no acute EKG changes Chest CTA negative for PE Cont ASA start statin Stress test abnormal- LHC : non obstructive CAD Qualifiers: Chest pain type: other chest pain Qualified Code(s): R07.89 - Other chest pain; R07.8 - Other chest pain (3) High blood pressure Priority: Secondary Status: Acute Comments: improved- will have patient follow up with PCP Qualifiers: Hypertension type: essential hypertension Qualified Code(s): I10 - Essential (primary) hypertension Hospital course: Mr. Jha is a 37 year old male PMH hypertension and obesity previous smoker. Presented to ER with complaints of midsternal chest pain radiating to left arm he did undergo a stress test which did show small area apex ischemia. Suspected to be artifact however ischemia could not be ruled out. TTE with LVEF 50-55% no segmental wall motion abnormalities troponins were negative. Cardiology was consulted patient underwent left heart catheter which showed nonobstructive CAD recommending risk factor modifications. Patient does not have a PCP we will set up an appointment with residency clinic for follow-up. Encouraged patient to lose weight follow low-fat low-sodium diet daily aspirin. I reviewed the recommendations with the patient and answered his questions. He verbalized understanding he is hemodynamically stable at this time and ready for discharge. - Time Spent with Patient Total time spent providing and/or coordinating discharge services: - Discharge Medications Home Medications: No Known Home Drugs 12/27/17 [History] Allergies/Adverse Reactions: 3 Allergy/AdvReac Type Severity Reaction Status Date / Time orange juice Allergy Redness of Verified 12/27/17 14:27 Skin Date of admission: 12/27/17 14:09 Primary care physician: PCP NONE Consults: 12/30/17 09:24 Consult to Cardiology [CONS] Routine Comment: Consulting Provider: Cardiology Fanny Reason for Consult: CP abnormal stress Time Notified: 09:25 Call Completed: Yes Discharging clinician: Malou Conn Anticipated date of discharge: 12/31/17 - Constitutional Vitals: Temp Pulse Resp BP Pulse Ox 98.0 F 76 16 107/71 97 12/31/17 06:49 12/31/17 06:49 12/31/17 06:49 12/31/17 06:49 12/31/17 06:49 General appearance: Present: A&O X 3, morbidly obese - Head Head exam: Present: atraumatic, normocephalic - Eye Eye exam: Present: PERRL, conjuntiva pink, sclera anicteric Pupils: Present: PERRL - Neck Neck exam general surgery: Present: supple, trachea midline. Absent: lymphadenopathy - Respiratory Respiratory exam: Present: CTAB. Absent: accessory muscle use, rales, rhonchi, wheezes - Cardiovascular Cardiovascular exam: Present: RRR, +S1, +S2. Absent: diastolic murmur, gallop, rubs, systolic murmur - GI/Abdominal GI/Abdominal exam: Present: normal bowel sounds, soft, no peritoneal signs. Absent: distended, tenderness - Extremities Exam Extremities exam: Present: warm, radial pulses palpable and symmetrical. Absent : calf tenderness, cyanotic, pedal edema - Neurological Exam Neurological exam: Present: CN II-XII intact, oriented X3, no focal deficits. Absent: pronater drift, facial droop, speech deficit - Skin Skin exam: Present: dry, intact - Patient Status Disposition: Home, Self-Care Condition: Fair Functional capacity at discharge: independent ambulation Overall status at discharge: patient is back to baseline - Discharge Instructions Instructions: Chest Pain (DC) Follow Up With: NONE,PCP [Primary Care Provider] - - Diet and Activity Activity: increase activity as tolerated Diet: low fat, low cholesterol
== END 2017-12-31 09:53 | disposition home or self-care (01) ==
LOC: EMEROO 11:38 → 3BNU 11:38
PROVIDERS: ADMIT Family Medicine; ATTEND Registered Nurse